=== PATIENT | male | born 1985 | race Caucasian/White ===

== ENCOUNTER 2017-01-20 13:58 | Emergency (ER) | payer BC, OTHER ==
[~2017-01-20] VITALS: Ht 180.3 cm; Wt 81.6 kg
[2017-01-20 14:26] VITALS: BP_SYST 130
[2017-01-20] MEDS ORDERED: TIMOLOL MALEATE 0.25% OPHTHALMIC DROPS 5 ML OP ONE (15:15)
[2017-01-20] MEDS ORDERED: DIAMOX SEQUELS 500 MG CAPSULE.SA PO ONE (15:45)
[2017-01-20 16:25] VITALS: BP_SYST 145
[2017-01-20] MEDS ORDERED: TETRACAINE HCL 0.5% OPHTHALMIC DROPS 15 ML OP ONE (16:45)
== END 2017-01-20 16:25 | disposition short-term general hospital (02) ==
LOC: SED 13:58
DX: S05.11XA Contusion of eyeball and orbital tissues, right eye, initial encounter (principal); H40.051 Ocular hypertension, right eye; W21.09XA Struck by other hit or thrown ball, initial encounter; Y93.89 Activity, other specified; Y92.89 Other specified places as the place of occurrence of the external cause; Y99.8 Other external cause status
CPT/HCPCS: 99285